=== PATIENT | female | born 1985 | race Caucasian/White ===

== ENCOUNTER 2020-05-12 09:08 | Emergency (ER) | payer BC, OTHER ==
[~2020-05-12] VITALS: Ht 162.6 cm; Wt 67.6 kg
[2020-05-12] MEDS ORDERED: NEOMYCIN-BACITRACIN-POLYM UNITDOSE PKG TOP OINT TOP ONE (10:30)
[2020-05-12] MEDS ORDERED: LIDOCAINE 2%HCL (LOCAL ANESTH.) INJ 20ML MDV ID ONE (10:30)
[2020-05-12 14:00] VITALS: BP 104/67
== END 2020-05-12 14:26 | disposition home or self-care (01) ==
LOC: ER 09:08
DX: S21.011A Laceration without foreign body of right breast, initial encounter (principal); T85.43XA Leakage of breast prosthesis and implant, initial encounter; X58.XXXA Exposure to other specified factors, initial encounter; Y93.89 Activity, other specified; Y92.89 Other specified places as the place of occurrence of the external cause; Y99.8 Other external cause status
CPT/HCPCS: 12002